=== PATIENT | female | born 1985 | race African-American/Black ===

== ENCOUNTER 2018-05-02 20:58 | Emergency (ER) | payer SELFPAY ==
[2018-05-02] MEDS ORDERED: Lorazepam 2 MG/ML VIAL ONE (21:40)
[2018-05-02 21:48] LABS: #Lymphocytes 1.3 thou/uL (1.20-3.40); #Monocytes 0.8 thou/uL (0.11-0.59); #Neutrophils 5.7 thou/uL (1.40-6.50); %Basophils 0.5 % (0.0-1.0); %Eosinophils 0.3 % (0.0-10.0); %Lymphocytes 16.6 % (21.0-51.0); %Monocytes 9.6 % (0.0-10.0); Hemoglobin 13.5 g/dL (12.0-16.0); Mean Corpuscular HGB CONC 32.9 g/dL (32.0-36.0); Mean Corpuscular Hemoglobin 27.4 pg (27.0-31.0); Mean Corpuscular Volume 83.3 fL (78.0-98.0); Mean Platelet Volume 6.6 fL (7.4-10.4); Platelet Count 310 thou/uL (130-400); RBC Distribution Width 12.5 % (11.5-14.5); Red Blood Cell (RBC) Count 4.92 mill/uL (4.20-5.40); White Blood Cell (WBC) Count 7.8 thou/uL (4.8-10.8)
[2018-05-02 22:09] LABS: ALT (SGPT) 19 U/L (8-55); AST (SGOT) 18 U/L (5-34); Albumin 4.4 g/dL (3.5-5.0); Alkaline Phosphatase 83 U/L (40-150); Anion Gap 21 mmol/L (10-20); BUN (Urea Nitrogen) 6 mg/dL (7.0-18.7); Bilirubin, Total 0.4 mg/dL (0.2-1.2); CK (CPK) 55 U/L (29-168); Calc. Creatinine Clearance 0 mL/min (70-130); Calcium 9.7 mg/dL (7.8-10.44); Carbon Dioxide 19 mmol/L (22-29); Chloride 101 mmol/L (98-107); Estimated GFR-MDRD 87; Glucose 149 mg/dL (70-105); Potassium 3.7 mmol/L (3.5-5.1); Protein, Total 8.4 g/dL (6.0-8.3); Sodium 137 mmol/L (136-145)
== END 2018-05-03 00:10 | disposition home or self-care (01) ==
LOC: ERS 20:58
DX: T65.91XA Toxic effect of unspecified substance, accidental (unintentional), initial encounter (principal); F41.0 Panic disorder [episodic paroxysmal anxiety]; F20.9 Schizophrenia, unspecified; F17.210 Nicotine dependence, cigarettes, uncomplicated; F43.10 Post-traumatic stress disorder, unspecified; F32.9 Major depressive disorder, single episode, unspecified
CPT/HCPCS: 36415; 80053; 82550; 84484; 85025; 93005; 96361; 96374; J2060

== ENCOUNTER 2018-05-03 22:12 | Emergency (ER) | payer SELFPAY ==
--- NOTE | 2018-05-03 23:14 | RAD ---
CHEST ONE VIEW 05/03/18 HISTORY: Pain. COMPARISON: 04/09/14 FINDINGS: Normal cardiac silhouette. Pulmonary vessels and hilum are normal. Costophrenic angles are clear. Pat sandra interstitial opacities. No pneumothorax. Mild rightward curvature of the thoracic spine. IMPRESSION: Patchy interstitial opacities which may represent infiltrate. Continued surveillance to ensure comple te resolution is recommended. POS: [facility]
== END 2018-05-04 00:16 | disposition home or self-care (01) ==
LOC: ERS 22:12
DX: J18.9 Pneumonia, unspecified organism (principal); F41.0 Panic disorder [episodic paroxysmal anxiety]; F20.9 Schizophrenia, unspecified; Z87.891 Personal history of nicotine dependence
CPT/HCPCS: 71045; 93005; 94760

== ENCOUNTER 2024-01-25 11:08 | Emergency (ER) | payer BC, SELFPAY ==
[2024-01-25] MEDS ORDERED: Ibuprofen 800 MG TAB ONE ×2 (12:28→12:29)
[2024-01-25] MEDS ORDERED: Dexamethasone 10 MG/ML VIAL ONE (12:28)
[2024-01-25 13:15] LABS: Influenza A by NAA Not Detected (NotDetected); Influenza B by NAA Not Detected (NotDetected); SARS-CoV-2 NAA Rapid Test Not Detected (NotDetected)
== END 2024-01-25 13:51 | disposition home or self-care (01) ==
LOC: ERS 11:08
DX: B34.9 Viral infection, unspecified (principal); F17.290 Nicotine dependence, other tobacco product, uncomplicated
CPT/HCPCS: 99283; J1100